=== PATIENT | male | born 1960 | race Caucasian/White ===

== ENCOUNTER 2020-04-05 07:21 | Day surgery (SDC) | payer OTHER ==
[2020-04-04 12:39] VITALS: BMI 24.3
[2020-04-05] MEDS ORDERED: AFRIN NASAL MIST 15 ML BOT ONE (08:08)
[2020-04-05] MEDS ORDERED: Midazolam HCl 2 mg/2 ml Vial ONE (09:23)
[2020-04-05] MEDS ORDERED: Fentanyl 100 MCG/2 ML VIAL ONE (09:23)
[2020-04-05] MEDS ORDERED: HYDROmorphone 0.5 MG/0.5 ML SYRINGE ONE (09:23)
[2020-04-05] MEDS ORDERED: Bacitracin Zinc Ointment 30 gm TUBE ONE (10:45)
[2020-04-05] MEDS ORDERED: Ondansetron PF 4 MG/2 ML Vial ONE (13:00)
[2020-04-05] MEDS ORDERED: PROPOFOL 200 MG/20 ML VIAL ONE (13:00)
[2020-04-05] MEDS ORDERED: ePHEDrine 50 MG/ML VIAL ONE (13:00)
[2020-04-05] MEDS ORDERED: Succinylcholine 200 MG/10 ml SYRINGE FS ONE (13:00)
[2020-04-05] MEDS ORDERED: Dexamethasone 20 MG/5 ML VIAL ONE (13:00)
[2020-04-05] MEDS ORDERED: Lidocaine 1% PF 5 ML VIAL ONE (13:00)
== END 2020-04-05 13:25 | disposition home or self-care (01) ==
LOC: SDC 07:21
PROVIDERS: ATTEND Specialist
PROC: 00BM0ZZ Excision of Facial Nerve, Open Approach (ICD-10-PCS; principal; 2020-04-05)
PROC: 0CT90ZZ Resection of Left Parotid Gland, Open Approach (ICD-10-PCS; principal; 2020-04-05)
DX: D11.0 Benign neoplasm of parotid gland (principal); M19.90 Unspecified osteoarthritis, unspecified site
CPT/HCPCS: 88305; 93005; 93010; J1100; J1170; J2250; J2405; J2704; J3010; J3490